=== PATIENT | female | born 1935 | race Caucasian/White ===

== ENCOUNTER 2018-04-19 12:05 | Emergency (ER) | payer OTHER, MEDICARE ==
--- NOTE | 2018-04-19 12:13 | PDOC ---
History of Present Illness - General Stated Complaint: FALL Time Seen by Provider: 04/19/18 12:10 - History of Present Illness Initial Comments: 04/19/18 12:14 Ms. Cotton is an 83 yo female w/ pmh of HTN and psoriasis who presents for evaluation s/p fall. Patient reports she was walking on [place] outside of care home earlier today when she had a mechanical fall and fell hitting her head. Fall was observed and she did not lose consciousness. Presented to ER for further evaluation. Denies any other injuries and reporting only mild pain at fall sites at this time. The patient denies chest pain, shortness of breath, headache and dizziness. Denies fever, chills, nausea, vomit, diarrhea and constipation. Denies dysuria, frequency, urgency and hematuria. Past History - Past Medical History Allergies/Adverse Reactions: Allergies Allergy/AdvReac Type Severity Reaction Status Date / Time No Known Allergies Allergy Verified 04/19/18 12:30 Home Medications: Ambulatory Orders Amoxicillin/Potassium Clav [Augmentin 875-125 Tablet] 1 each PO BID #10 tablet 04/19/18 Bacitracin - [Bacitracin Topical Ointment -] 1 applic TP BID #1 tube 04/19/18 Review of Systems - Review of Systems Comments:: 04/19/18 12:14 GENERAL/CONSTITUTIONAL: No fever or chills. No weakness. HEAD, EYES, EARS, NOSE AND THROAT: +Mild pain s/p fall to face. No change in vision. No ear pain or discharge. No sore throat. CARDIOVASCULAR: No chest pain or shortness of breath RESPIRATORY: No cough, wheezing, or hemoptysis. GASTROINTESTINAL: No nausea, vomiting, diarrhea or constipation. GENITOURINARY: No dysuria, frequency, or change in urination. MUSCULOSKELETAL: No joint or muscle swelling or pain. No neck or back pain. SKIN: No rash NEUROLOGIC: No headache, vertigo, loss of consciousness, or change in strength/ sensation. ENDOCRINE: No increased thirst. No abnormal weight change HEMATOLOGIC/LYMPHATIC: No anemia, easy bleeding, or history of blood clots. ALLERGIC/IMMUNOLOGIC: No hives or skin allergy. *Physical Exam - Physical Exam Comments: 04/19/18 12:14 GENERAL: Awake, alert, and fully oriented, in no acute distress HEAD: No signs of trauma, normocephalic, atraumatic EYES: PERRLA, EOMI, sclera anicteric, conjunctiva clear ENT: Auricles normal inspection, hearing grossly normal, nares patent, oropharynx clear without exudates. Moist mucosa NECK: Normal ROM, supple, no lymphadenopathy, JVD, or masses LUNGS: No distress, speaks full sentences, clear to auscultation bilaterally HEART: Regular rate and rhythm, normal S1 and S2, no murmurs, rubs or gallops, peripheral pulses normal and equal bilaterally. ABDOMEN: Soft, nontender, normoactive bowel sounds. No guarding, no rebound. No masses EXTREMITIES: Normal inspection, Normal range of motion, no edema. No clubbing or cyanosis. NEUROLOGICAL: Cranial nerves II through XII grossly intact. Normal speech, normal gait, no focal sensorimotor deficits SKIN: Warm, Dry, normal turgor, no rashes or lesions noted. Procedures - Laceration/Wound Repair Upper Lip Wound Length: to 2.5 cm Wound's Depth, Shape: superficial Irrigated w/ Saline: Yes Anesthesia: 1% Lidocaine Amount of Anesthetic (ccs): 3 Wound Debrided: minimal Wound Repaired With: Sutures Suture Size/Type: 4:0 Number of Sutures: 3 Layer Closure: No Sterile Dressing Applied: No Splint Applied: No Sling Applied: No Medical Decision Making - Medical Decision Making 04/19/18 12:14 Ms. Cotton is an 83 yo female w/ pmh as described who presents for evaluation after fall earlier today. Patient well appearing - evaluated with CT head, C- spine, facial bones - all negative. Tetanus booster shot given as patient unsure of last. Patient started on ABX in ED. Laceration repaired w/ 3 absorbable 4-0 sutures. Discharging to home. *DC/Admit/Observation/Transfer Diagnosis at time of Disposition: Fall Qualifiers: Encounter type: initial encounter Qualified Code(s): W19.XXXA - Unspecified fall, initial encounter - Discharge Dispostion Disposition: HOME - Prescriptions Prescriptions: Amoxicillin/Potassium Clav [Augmentin 875-125 Tablet] 1 each PO BID #10 tablet - Referrals - Patient Instructions Printed Discharge Instructions: How to Care for Absorbable Sutures Additional Instructions: You were evaluated today in the ER after your fall. We performed Head, C-spine, and Facial CT scans with no emergent findings. We cleaned your wounds and fixed your laceration with 3 absorbable sutures. We have also sent a prescription to your pharmacy. Take all medications as proscribed. Follow-up with primary care provider in 2-3 days for further evaluation. Return to ER if any fever, increase in pain, chills, or other concerning symptoms. - Post Discharge Activity
[2018-04-19 12:30] VITALS: PULSE 78; TEMP 97.6; BMI 22.1
[2018-04-19] MEDS ORDERED: DIPHTH,PERTUSS(ACELL),TET 0.5 ML DISP.SYRIN IM ONE ×2 (13:09→13:40)
[2018-04-19 13:13] VITALS: BP 180/85
--- NOTE | 2018-04-19 13:17 | PDOC ---
Attending Attestation - Resident Resident Name: Gagan Hennessy - ED Attending Attestation I have performed the following: I have examined & evaluated the patient, The case was reviewed & discussed with the resident, I agree w/resident's findings & plan, Exceptions are as noted - HPI HPI: 04/19/18 13:16 83 year old female c/ hx of HTN, psoriasis p/w mechanical fall. 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 On her way to [facility], +mechanical fall and landed on R side face. No LOC, no headache, no nausea, vomiting, no neuro deficits. No other injuries. Has abrasions to her right forehead and R maxillary region. No double vision or eye pain. Sustained approx 1 cm to inner upper lip. No crossing of [place]. Last tetanus is unknown. - Physicial Exam PE: 04/19/18 13:21 GENERAL: Awake, alert, and fully oriented, in no acute distress HEAD: Abrasions and skin tear to right forehead, abrasions to right maxillary region. Small 1 cm linear superficial laceration to inner upper lip. No through and through. EYES: PERRLA, EOMI, sclera anicteric, conjunctiva clear ENT: Auricles normal inspection, hearing grossly normal, nares patent, Moist mucosa NECK: Normal ROM, supple, no c-spine tenderness EXTREMITIES: Normal range of motion, no edema. No clubbing or cyanosis. No cords, erythema, or tenderness NEUROLOGICAL: Cranial nerves II through XII grossly intact. Normal speech SKIN: Warm, Dry, normal turgor, no rashes or lesions noted. - Medical Decision Making 04/19/18 13:26 Vital Signs Temp Pulse Resp BP Pulse Ox 97.6 F 78 20 180/85 H 100 04/19/18 12:14 04/19/18 12:14 04/19/18 12:14 04/19/18 13:13 04/19/18 12:14 Pt is alert aware and oriented. I agree with resident's plan for head CT and maxillary facial CT Update tetanus Needs excellent wound care. Bacitracin BID Inner lip needs some interrupted absorbable suturing. If workup is negative, pt can follow up with PMD and return to ER in 5 to 7 days for suture removal. 04/19/18 13:39 3 4-0 interrupted chronic gut sutures placed by Dr. Hennessy. CT scans negative.
[2018-04-19] MEDS ORDERED: AMOX TR/POT CLAV 875MG/125MG TABLETS (FP) PO ONE (13:49)
[2018-04-19] MEDS ORDERED: AMOX TR/POT CLAV 875MG/125MG TABLETS (FP) ONE (13:59)
== END 2018-04-19 14:07 | disposition home or self-care (01) ==
LOC: JER 12:05
PROC: 3E0234Z Introduction of Serum, Toxoid and Vaccine into Muscle, Percutaneous Approach (ICD-10-PCS; principal; 2018-04-19)
PROC: 0CQ0XZZ Repair Upper Lip, External Approach (ICD-10-PCS; 2018-04-19)
DX: S01.511A Laceration without foreign body of lip, initial encounter (principal); W18.39XA Other fall on same level, initial encounter; Y93.89 Activity, other specified; Y92.480 Sidewalk as the place of occurrence of the external cause; Y99.8 Other external cause status
CPT/HCPCS: 12011; 70450-TC; 70486-TC; 72125-TC; 90471; 90715; 99282-25

== ENCOUNTER 2019-04-05 14:47 | Emergency (ER) | payer OTHER, MEDICARE ==
[2019-04-05 15:07] VITALS: BP 195/74; PULSE 76; TEMP 98; BMI 21.9
--- NOTE | 2019-04-05 15:48 | PDOC ---
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 She reports that the swelling was minimal when it first started but increased significantly by or Saturday. She states that she became increasingly concerned about the cause of the swelling and went to urgent care this morning; she was sent to the ED from urgent care. Ms Cotton denies any significant pain to the leg, drainage, open wounds, or spreading redness. She says it appears the same today as it did several days ago. She denies any difficulty breathing, chest pain, pleuritic pain, lightheadedness, recent travel, fever/chills, or other recent symptoms. She has no history of CHF, WI, CAD or other chronic cardiac problem other than hypertension. Due to her T-cell lymphoma, she has recently been off her psoriasis treatment. Past History - Past Medical History Allergies/Adverse Reactions: Allergies Allergy/AdvReac Type Severity Reaction Status Date / Time No Known Allergies Allergy Verified 04/05/19 14:54 Home Medications: Ambulatory Orders Atenolol/Chlorthalidone [Atenolol-Chlorthalidone 50-25] 0.5 tab PO DAILY Betamethasone Dipropionate 1 applic TD DAILY PRN 04/05/19 Clindamycin [Cleocin -] 300 mg PO TID #21 capsule 04/05/19 Potassium Chloride [Klor-Con M10] 1 tab PO BIDLASIX 04/05/19 Telmisartan 1 tab PO DAILY 04/05/19 Cancer: Yes (t cell lymphoma radiation) COPD: No HTN: Yes Other medical history: psoriosis - Psycho Social/Smoking Cessation Hx Smoking History: Never smoked Have you smoked in the past 12 months: No Hx Alcohol Use: No Drug/Substance Use Hx: No Review of Systems - Review of Systems Comments:: General: No fevers, no chills, no weight or appetite change, no malaise HEENT: No changes in vision, no changes in hearing, no congestion, no sore throat CV: No chest pain, no palpitations, + LE edema R>L Pulm: No SOB, no cough, no wheezing GI: No nausea or vomiting, no change in bowel habits, no melena : No frequency, no urgency, no dysuria Musc: No back pain, no joint swelling, no recent injury Skin: h/o psoriasis (currently untreated) Endo: No excessive thirst, no heat/cold intolerance Heme: No unusual bruising or bleeding, no swollen glands Neuro: No syncope, no numbness/tingling, no focal weakness Vasc: No claudication Psych: No recent change in mood, no SI or HI *Physical Exam - Vital Signs Last Vital Signs Temp Pulse Resp BP Pulse Ox 98 F 76 18 195/74 H 99 04/05/19 14:49 04/05/19 14:49 04/05/19 14:49 04/05/19 14:49 04/05/19 14:49 - Physical Exam General: Comfortable, no acute distress HEENT: Atraumatic, PERRL, EOMI, MMM, voice normal, normal neck ROM Cards: RRR, no murmur appreciated Pulm: Comfortable on room air, clear to auscultation bilaterally Abd: Soft, nontender, nondistended Ext: Atraumatic. 3+ RLE pitting edema, trace LLE pitting edema. Distal RLE TTP over foot, ankle, and posterior calf. ROM intact. Strength 5/5 and equal bilaterally Vasc: Extremities WWP. Pedal pulses not palpable secondary to edema Skin: Diffuse pink-colored erythematous plaques c/w psoriasis. Erythema to distal RLE, warm to touch. 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 She denies any difficulty breathing, chest pain, pleuritic pain, lightheadedness, recent travel, fever/chills, worsening erythema, leg pain, or other recent symptoms. - Concerning for DVT given recent lymphoma history. No SOB, pleuritic pain, vitals abnormalities or other symptoms concerning for PE - May be cellulitis or lymphedema secondary to enlarged lymph nodes. Asymmetric swelling unlikely due to CHF, CKD, or liver abnormalities. - CBC, CMP, coags, BNP, duplex US 04/05/19 17:40 - Labs reviewed. No concerning abnormalities - Duplex negative for DVT - Updated pt with results. Discussed possible cellulitis, though difficult to determine as pt has skin erythema due to her psoriasis. Following discussion, pt states that she would prefer to be treated. She has an appointment with her PMD scheduled for tomorrow and will discuss whether to continue antibiotic treatment at that time. - Advised patient to elevate her legs, consider compression stockings. She understands and agrees. Discussed with Dr Oswald Hui PGY2 Discharge - Discharge Information Problems reviewed: Yes Clinical Impression/Diagnosis: Lower extremity edema, Cellulitis of right lower extremity Condition: Stable Disposition: HOME - Admission No - Additional Discharge Information Prescriptions: Clindamycin [Cleocin -] 300 mg PO TID #21 capsule - Follow up/Referral Referrals: ON STAFF,NOT [Non Staff, Medical] - - Patient Discharge Instructions Patient Printed Discharge Instructions: DI for Cellulitis -- Adult, DI for Peripheral Edema -- Bilateral Additional Instructions: Discharge Instructions: You were seen in the emergency department for leg swelling. You had blood tests and a venous ultrasound. The labs did not show any concerning findings, and your ultrasound was negative for blood clots. Your swelling, pain and redness may be due to cellulitis (skin infection), and you have been prescribed an antibiotic. Home Care and Follow Up: - Take the prescribed antibiotic, clindamycin, every 8 hours. You may wish to discuss continuing this antibiotic with your regular doctor at your appointment tomorrow - Elevate your legs above the level of the heart whenever possible to help relieve the swelling - Consider buying compression stockings to wear during the day when you are unable to elevate your legs - Follow up with your regular doctor at your previously scheduled appointment tomorrow - Seek immediate medical care for worsening symptoms, spreading redness, fever to 100.5F or higher, severe pain, difficulty breathing, chest pain with breathing, lightheadedness, or any other medical emergency. - Post Discharge Activity
[2019-04-05 16:00] LABS: BASO % 0.7 % (0-2.0); EOS % 1.3 % (0-4.5); HEMATOCRIT 38.6 % (32.4-45.2); HEMOGLOBIN 12.9 GM/dL (10.7-15.3); LYMPH % 25.6 % (8-40); MCH 29.6 pg (25.7-33.7); MCHC 33.4 g/dl (32.0-36.0); MEAN CELL VOLUME 88.6 fl (80-96); MEAN PLT VOLUME 7.3 fl (7.5-11.1); NEUT % 63.4 % (42.8-82.8); PLATELET COUNT 351 K/MM3 (134-434); RBC 4.35 M/mm3 (3.60-5.2); RDW 13.7 % (11.6-15.6); WHITE BLOOD COUNT 7.9 K/mm3 (4.0-10.0)
[2019-04-05 16:25] LABS: INR 0.92 (0.83-1.09); PROTHROMBIN TIME (PATIENT) 10.8 SEC (9.7-13.0)
[2019-04-05 16:27] LABS: ACTIVATED PTT 34.8 SECONDS (25.2-36.5)
[2019-04-05 16:28] LABS: ALBUMIN 3.5 g/dl (3.4-5.0); BILIRUBIN,TOTAL 0.3 mg/dL (0.2-1); BLOOD UREA NITROGEN 18.6 mg/dL (7-18); CALCIUM 9.7 mg/dL (8.5-10.1); CREATININE 0.9 mg/dL (0.55-1.3); POTASSIUM 4.8 mmol/L (3.5-5.1); TOT PROT 7.3 g/dl (6.4-8.2)
--- NOTE | 2019-04-05 17:06 | PDOC ---
Documentation entered by Rosemary Boyle SCRIBE, acting as scribe for Charlene Akers MD. Charlene Akers MD: This documentation has been prepared by the [place] rod Joy, SCRIBE, under my direction and personally reviewed by me in its entirety. I confirm that the documentation accurately reflects all work, treatment, procedures, and medical decision making performed by me. Attending Attestation - Resident Resident Name: Susannah Hui - ED Attending Attestation I have performed the following: I have examined & evaluated the patient, The case was reviewed & discussed with the resident, I agree w/resident's findings & plan, Exceptions are as noted - HPI HPI: 04/05/19 15:42 The patient is a 84 year old female with significant past medical history of HTN , severe psoriasis, and cutaneous lymphoma (last radiation treatment of left upper and lower extremities was 6 wks ago) who presents to the ED with swollen and red bilateral lower legs (more swollen on the right than left) for x5 days. As per patient, since her legs started to get swollen she has not felt any pain but only stiffness in her legs. Patient states that she was getting increasingly worried and went to an urgent care but they sent her to the ED for further evaluation. No recent travel. The patient denies shortness of breath or chest pain. Denies dizziness, palpitations, headache, focal weakness/numbness, N/V/D, abd pain, urinary sxs, LE edema, rash. Allergies:NKA - Physicial Exam PE: 04/05/19 15:43 Agree with resident exam - Medical Decision Making 04/05/19 18:18 84yo F hx T cell lymphoma presents to the ED with R>L LE edema. Vitals wnl DDx includes DVT vs venous stasis vs lymphedema vs cellulitis vs CHF Labs wnl, no leukocytosis US negative for DVT Asymmetry makes stasis and CHF less likely Most likely cellulitis vs lymphedema (but no LN seen on US) Plan to treat as cellulitis with clindamycin, pt has f/u appt with PMD tomorrow She is clinically stable and well appearing for DC home I discussed the physical exam findings, ancillary test results and final diagnoses with the patient. I answered all of the patient's questions. The patient was satisfied with the care received and felt comfortable with the discharge plan and treatment plan. The patient will call their primary care physician within 24 hours to arrange follow-up and will return to the Emergency Department with any new, persistent or worsening symptoms.
[2019-04-05] MEDS ORDERED: CLINDAMYCIN HCL 150 MG CAPSULE (FP) PO ONE (17:22)
[2019-04-05] MEDS ORDERED: CLINDAMYCIN HCL 150 MG CAPSULE (FP) ONE (17:57)
== END 2019-04-05 18:01 | disposition home or self-care (01) ==
LOC: JER 14:47
DX: L03.115 Cellulitis of right lower limb (principal); I10 Essential (primary) hypertension; L40.9 Psoriasis, unspecified; Z85.6 Personal history of leukemia; Z92.3 Personal history of irradiation
CPT/HCPCS: 36415; 80053; 83880; 85025; 85610; 85730; 93970-TC; 99282-25